=== PATIENT | male | born 1985 | race Caucasian/White ===

== ENCOUNTER 2022-01-09 15:11 | Emergency (ER) | payer OTHER, BC ==
[2022-01-09] MEDS ORDERED: SODIUM CHLORIDE 0.9% 1,000 ML IV STA (15:18)
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
[2022-01-09 15:24] LABS: Glucose,Whole Blood 107 mg/dL (75-99)
[2022-01-09 15:30] VITALS: BP 148/91; PULSE 87; RESP 148; TEMP 98.5
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
--- NOTE | 2022-01-09 15:49 | XR ---
EXAMINATION TYPE: XR foot complete RT DATE OF EXAM: 01/09/2022 COMPARISON: NONE HISTORY: Pain TECHNIQUE: Three views are submitted. FINDINGS: Well-corticated density along the dorsal anterior margin of the talus most likely chronic. There also is a bony density adjacent to lateral malleolus most likely chronic. IMPRESSION: 1. Tiny bony densities adjacent to the talus and lateral malleolus are most likely chronic correlate with point tenderness for confirmation.
[2022-01-09 15:57] LABS: ALT 26 U/L (4-49); AST 26 U/L (17-59); African American GFR (CKD) >90 (>60 ml/min/1.73 sqM); Albumin 4.2 g/dL (3.5-5.0); Alkaline Phosphatase 68 U/L (38-126); Anion Gap 5 mmol/L; Blood Urea Nitrogen 13 mg/dL (9-20); Calcium 9.1 mg/dL (8.4-10.2); Carbon Dioxide 28 mmol/L (22-30); Chloride 107 mmol/L (98-107); Glucose 101 mg/dL (74-99); Non-African American GFR(CKD) >90 (>60 ml/min/1.73 sqM); Potassium 4.3 mmol/L (3.5-5.1); Sodium 140 mmol/L (137-145); Total Bilirubin 0.5 mg/dL (0.2-1.3); Total Protein 6.5 g/dL (6.3-8.2)
[2022-01-09 16:05] LABS: Partial Thromboplastin Time 22.3 sec (22.0-30.0); Prothrombin Time 10.8 sec (9.0-12.0)
[2022-01-09 16:12] LABS: Basophils # (A) 0.1 k/uL (0-0.2); Basophils % (A) 1 %; Eosinophils # (A) 0.3 k/uL (0-0.7); Eosinophils % (A) 6 %; HCT 45.4 % (39.0-53.0); HGB 15.1 gm/dL (13.0-17.5); Lymphocytes # (A) 2.1 k/uL (1.0-4.8); Lymphocytes % (A) 36 %; MCH 32.6 pg (25.0-35.0); MCHC 33.4 g/dL (31.0-37.0); MCV 97.7 fL (80.0-100.0); Mean Platelet Volume 8.3; Monocytes # (A) 0.3 k/uL (0-1.0); Monocytes % (A) 5 %; Neutrophils # (A) 2.9 k/uL (1.3-7.7); Neutrophils % (A) 49 %; Platelet Count 193 k/uL (150-450); RBC 4.65 m/uL (4.30-5.90); RDW 11.8 % (11.5-15.5); WBC 5.8 k/uL (3.8-10.6)
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
[2022-01-09 16:42] LABS: Appearance,Urine Clear (Clear); Bilirubin,Urine Negative (Negative); Blood,Urine Negative (Negative); Color,Urine Light Yellow; Glucose,Urine (UA) Negative (Negative); Ketones,Urine Negative (Negative); Leukocyte Esterase,Urine Negative (Negative); Nitrite,Urine Negative (Negative); PH, Urine 7.5 (5.0-8.0); Protein,Urine Negative (Negative); Specific Gravity,Urine 1.018 (1.001-1.035); Urobilinogen,Urine <2.0 mg/dL (<2.0)
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
== END 2022-01-09 20:15 | disposition home or self-care (01) ==
LOC: EC 15:11
DX: S92.251A Displaced fracture of navicular [scaphoid] of right foot, initial encounter for closed fracture (principal); S92.221A Displaced fracture of lateral cuneiform of right foot, initial encounter for closed fracture; V29.9XXA Motorcycle rider (driver) (passenger) injured in unspecified traffic accident, initial encounter
CPT/HCPCS: 36415; 93005; 86900; 86901; 80053; 84484; 85025; 85610; 85730; 86850; 81003; 72170; 73110; 73130; 73590; 73630; 71045; 72125; 70450; 71260; 74177; 73700; 29515; 99284; 96360; Q9967

== ENCOUNTER 2023-03-24 00:01 | Emergency (ER) | payer BC ==
[2023-03-24 00:23] VITALS: TEMP 98.6
[2023-03-24] MEDS ORDERED: RABIES VACCINE (PCEC) 2.5 UNIT KIT IM ONE (02:00)
--- NOTE | 2023-03-24 02:02 | ED ---
Anxiety HPI - General Chief Complaint: Anxiety Stated Complaint: ANXIETY Time Seen by Provider: 03/24/23 01:18 Source: patient Mode of arrival: ambulatory - History of Present Illness Initial Comments: 38-year-old male presenting with chief complaint of "I think I'm having an anxiety attack". Patient states that he has had increased anxiety over the last 2 days. Patient is worried because 2 months ago he saw a bat flying in his bedroom when he woke up and he is worried he was exposed to rabies. Patient was seen at another facility today and rabies test was sent out, he states that he'll get the results of the month. He states that he has been hyper-fixated on this follow-up for the last 2 days and has had difficulty sleeping. He denies any chest pain, difficulty breathing, palpitations, nausea, vomiting, fever. No history of mental illness and no thoughts of wanting to harm himself or others. - Related Data Home Medications: Previous Rx's Medication Instructions Recorded HYDROcodone/APAP 7.5-325MG [[place] 1 tab PO Q6HR PRN 3 Days #12 tab 01/09/22 7.5-325] Allergies/Adverse Reactions: Allergies Allergy/AdvReac Type Severity Reaction Status Date / Time No Known Allergies Allergy Verified 03/24/23 00:22 Review of Systems ROS Statement: Those systems with pertinent positive or pertinent negative responses have been documented in the HPI. ROS Other: All systems not noted in ROS Statement are negative. Past Medical History Past Medical History: No Reported History History of Any Multi-Drug Resistant Organisms: None Reported Past Surgical History: Adenoidectomy Past Psychological History: No Psychological Hx Reported Smoking Status: Current every day smoker Past Alcohol Use History: Occasional Past Drug Use History: None Reported General Exam Limitations: no limitations General appearance: alert, in no apparent distress Head exam: Present: atraumatic, normocephalic, normal inspection Eye exam: Present: normal appearance, EOMI Neck exam: Present: normal inspection, full ROM Respiratory exam: Present: normal lung sounds bilaterally. Absent: respiratory distress, wheezes, rales, rhonchi, stridor Cardiovascular Exam: Present: regular rate, normal rhythm, normal heart sounds. Absent: systolic murmur, diastolic murmur, rubs, gallop, clicks Neurological exam: Present: alert, oriented X3, CN II-XII intact Psychiatric exam: Present: anxious Skin exam: Present: warm, dry, intact, normal color. Absent: rash Course Vital Signs 03/24/23 00:20 Temperature 98.6 F Pulse Rate 75 Respiratory 18 Rate Blood Pressure 137/94 O2 Sat by Pulse 99 Oximetry Medical Decision Making - Medical Decision Making Was pt. sent in by a medical professional or institution (, PA, METAL SPRAYING MACHINE OPERATOR, urgent care, hospital, or detention...) When possible be specific @ -No Did you speak to anyone other than the patient for history (EMS, parent, family, police, friend...)? What history was obtained from this source @ -No Did you review nursing and triage notes (agree or disagree)? Why? @ -I reviewed and agree with nursing and triage notes Were old charts reviewed (outside hosp., previous admission, EMS record, old EK G, old radiological studies, urgent care reports/EKG's, detention records)? Report findings @ -No old charts were reviewed Differential Diagnosis (chest pain, altered mental status, abdominal pain women, abdominal pain men, vaginal bleeding, weakness, fever, dyspnea, syncope, headache, dizziness, GI bleed, back pain, seizure, CVA, palpatations, mental health, musculoskeletal)? @ -Differential Mental Health Depression, anxiety, bipolar, psychosis, schizophrenia, borderline personality, situational depression, adjustment disorder, behavioral disorder, brain tumor, malingering, substance abuse, encephalopathy, medication reaction, dementia, hypothyroidism, degenerative neurologic disorder, lupus.... This is not meant to be all-inclusive list EKG interpreted by me (3pts min.). @ -As above X-rays interpreted by me (1pt min.). @ -None done CT interpreted by me (1pt min.). @ -None done U/S interpreted by me (1pt. min.). @ -None done What testing was considered but not performed or refused? (CT, X-rays, U/S, labs)? Why? @ -None What meds were considered but not given or refused? Why? @ -None Did you discuss the management of the patient with other professionals (professionals i.e. , PA, METAL SPRAYING MACHINE OPERATOR, lab, RT, psych nurse, criminal justice social worker, spring inspector, teacher, guest relation officer, case finisher)? Give summary @ -No Was smoking cessation discussed for >3mins.? @ -No Was critical care preformed (if so, how long)? @ -No Were there social determinants of health that impacted care today? How? (Homelessness, low income, unemployed, alcoholism, drug addiction, transportation, low edu. Level, literacy, decrease access to med. care, group home, rehab)? @ -No Was there de-escalation of care discussed even if they declined (Discuss DNR or withdrawal of care, Hospice)? DNR status @ -No What co-morbidities impacted this encounter? (DM, HTN, Smoking, COPD, CAD, Cancer, CVA, ARF, Chemo, Hep., AIDS, mental health diagnosis, sleep apnea, morbid obesity)? @ -None Was patient admitted / discharged? Hospital course, mention meds given and route, prescriptions, significant lab abnormalities, going to OR and other pertinent info. @ -38-year-old male presenting with chief complaint of "I think I'm having an anxiety attack". He is concerned he is exposed to rabies 2 months ago when there was a bat flying in his bedroom. He states that he is hyper-fixated on this thought. He denies any thoughts of going to harm himself or others. He does not take any other medications and has no history of mental illness. Patient had a long discussion regarding his concerns. He would like to receive the rabies vaccine today. First dose is given today and he is given a prescription for doses on days 3, 7, and 14. Follow-up with PCP. Report back to ER with any new or worsening symptoms. Discussed return parameters and answered all questions. Patient conveyed verbal understanding and agreed to the plan. I discussed this case in detail with my attending Dr. Yuan Undiagnosed new problem with uncertain prognosis? @ -No Drug Therapy requiring intensive monitoring for toxicity (Heparin, Nitro, Insulin, Cardizem)? @ -No Were any procedures done? @ -No Diagnosis/symptom? @ -Anxiety Acute, or Chronic, or Acute on Chronic? @ -acute Uncomplicated (without systemic symptoms) or Complicated (systemic symptoms)? @ -Uncomplicated Side effects of treatment? @ -No Exacerbation, Progression, or Severe Exacerbation? @ -No Poses a threat to life or bodily function? How? (Chest pain, [place], [place], pneumonia, PE, COPD, DKA, ARF, appy, cholecystitis, CVA, Diverticulitis, Homicidal, Suicidal, threat to staff... and all critical care pts) @ -No Disposition Clinical Impression: Acute anxiety Disposition: HOME SELF-CARE Condition: Good Instructions (If sedation given, give patient instructions): Rabies Vaccine (By injection), Generalized Anxiety Disorder (ED), Rabies (ED) Additional Instructions: Follow-up with PCP. Report back to ER with any new or worsening symptoms. Is patient prescribed a controlled substance at d/c from ED?: No Referrals: Manuelito Sparks MD [Primary Care Provider] - 1-2 days Time of Disposition: 02:02
[2023-03-24] MEDS ORDERED: hydrOXYzine HCL 25 MG TAB PO STA (02:21)
[2023-03-24 02:45] VITALS: BP 127/83; PULSE 81; RESP 16
== END 2023-03-24 02:45 | disposition home or self-care (01) ==
LOC: EC 00:01
DX: F41.9 Anxiety disorder, unspecified (principal); F17.200 Nicotine dependence, unspecified, uncomplicated; Z20.3 Contact with and (suspected) exposure to rabies
CPT/HCPCS: 90471; 90675; 99283

== ENCOUNTER 2023-03-25 10:49 | Emergency (ER) | payer BC ==
[2023-03-25 12:07] LABS: Basophils % (A) 0 %; Eosinophils # (A) 0.1 k/uL (0-0.7); Eosinophils % (A) 2 %; HCT 47.7 % (39.0-53.0); HGB 16.6 gm/dL (13.0-17.5); Lymphocytes # (A) 1.5 k/uL (1.0-4.8); Lymphocytes % (A) 26 %; MCH 33.3 pg (25.0-35.0); MCHC 34.8 g/dL (31.0-37.0); MCV 95.5 fL (80.0-100.0); Mean Platelet Volume 8.3; Monocytes # (A) 0.4 k/uL (0-1.0); Monocytes % (A) 7 %; Neutrophils # (A) 3.6 k/uL (1.3-7.7); Neutrophils % (A) 62 %; Platelet Count 190 k/uL (150-450); RDW 12.2 % (11.5-15.5); WBC 5.8 k/uL (3.8-10.6)
[2023-03-25 12:20] LABS: ALT 39 U/L (4-49); AST 29 U/L (17-59); African American GFR (CKD) >90 (>60 ml/min/1.73 sqM); Albumin 4.9 g/dL (3.5-5.0); Alkaline Phosphatase 78 U/L (38-126); Anion Gap 12 mmol/L; Blood Urea Nitrogen 17 mg/dL (9-20); Calcium 9.9 mg/dL (8.4-10.2); Carbon Dioxide 24 mmol/L (22-30); Chloride 104 mmol/L (98-107); Glucose 97 mg/dL (74-99); Non-African American GFR(CKD) >90 (>60 ml/min/1.73 sqM); Potassium 4.6 mmol/L (3.5-5.1); Sodium 140 mmol/L (137-145); Total Bilirubin 0.8 mg/dL (0.2-1.3); Total Protein 7.8 g/dL (6.3-8.2)
[2023-03-25] MEDS ORDERED: LIDOCAINE/EPINEPHR/TETRACAINE 5 ML BOTTLE TOPICAL ONE (12:44)
[2023-03-25] MEDS ORDERED: LIDOCAINE 1% INJ 10MG/ML (20 ML MDV) SQ ONE (12:45)
--- NOTE | 2023-03-25 12:46 | ED ---
General Adult HPI - General Chief complaint: Neuro Symptoms/Deficit Stated complaint: L Side Numbess arm and face Time Seen by Provider: 03/25/23 11:28 Source: patient, RN notes reviewed Mode of arrival: ambulatory Limitations: no limitations - History of Present Illness Initial comments: Patient is a 30-year-old male presenting to the emergency room with complaints of feeling a fogginess and disconnect in his head ongoing for approximately 3 days now. He was evaluated by both this facility and [facility] 2 days ago for the same symptoms. He reports having a normal CAT scan of the brain at [facility]. He is concerned of possible infection but denies any specific complaints including any chest pain, shortness of breath, abdominal p ain, nausea, vomiting, diarrhea, headache, dizziness, fevers or chills. He denies any significant past medical history. - Related Data Previous Rx's Medication Instructions Recorded HYDROcodone/APAP 7.5-325MG [[place] 1 tab PO Q6HR PRN 3 Days #12 tab 01/09/22 7.5-325] Allergies Allergy/AdvReac Type Severity Reaction Status Date / Time No Known Allergies Allergy Verified 03/25/23 11:05 Review of Systems ROS Statement: Those systems with pertinent positive or pertinent negative responses have been documented in the HPI. ROS Other: All systems not noted in ROS Statement are negative. Past Medical History Past Medical History: No Reported History History of Any Multi-Drug Resistant Organisms: None Reported Past Surgical History: Adenoidectomy Past Psychological History: No Psychological Hx Reported Smoking Status: Former smoker Past Alcohol Use History: Occasional Past Drug Use History: None Reported General Exam Limitations: no limitations General appearance: alert, in no apparent distress Head exam: Present: atraumatic, normocephalic, normal inspection Eye exam: Present: normal appearance, PERRL, EOMI. Absent: scleral icterus, conjunctival injection, periorbital swelling ENT exam: Present: normal exam, mucous membranes moist Neck exam: Present: normal inspection, full ROM Respiratory exam: Absent: respiratory distress, accessory muscle use Cardiovascular Exam: Present: regular rate GI/Abdominal exam: Present: soft. Absent: distended, tenderness, guarding, rebound, rigid Extremities exam: Present: normal inspection, full ROM. Absent: pedal edema, joint swelling Right Gait: observed and normal Back exam: Present: normal inspection Neurological exam: Present: alert, oriented X3, CN II-XII intact Psychiatric exam: Present: normal affect, normal mood Skin exam: Present: warm, dry, intact, normal color. Absent: rash Course Vital Signs 03/25/23 03/25/23 11:02 12:31 Temperature 98.3 F 98.1 F Pulse Rate 65 75 Respiratory 18 16 Rate Blood Pressure 124/83 111/79 O2 Sat by Pulse 99 99 Oximetry Medical Decision Making - Medical Decision Making Was pt. sent in by a medical professional or institution (, PA, RECREATION THERAPY AIDE, urgent care, hospital, or fpc...) When possible be specific @ -No Did you speak to anyone other than the patient for history (EMS, parent, family, police, friend...)? What history was obtained from this source @ -No Did you review nursing and triage notes (agree or disagree)? Why? @ -I reviewed and agree with nursing and triage note Were old charts reviewed (outside hosp., previous admission, EMS record, old EKG, old radiological studies, urgent care reports/EKG's, fpc records)? Report findings @ -Yes, Emergency room workup from 03/24/23 reviewed Differential Diagnosis (chest pain, altered mental status, abdominal pain women, abdominal pain men, vaginal bleeding, weakness, fever, dyspnea, syncope, h eadache, dizziness, GI bleed, back pain, seizure, CVA, palpatations, mental health, musculoskeletal)? @ -Differential Mental Health Depression, anxiety, bipolar, psychosis, schizophrenia, borderline personality, situational depression, adjustment disorder, behavioral disorder, brain tumor, malingering, substance abuse, encephalopathy, medication reaction, dementia, hypothyroidism, degenerative neurologic disorder, lupus.... This is not meant to be all-inclusive list EKG interpreted by me (3pts min.). @ None done X-rays interpreted by me (1pt min.). @ None done CT interpreted by me (1pt min.). @ None done U/S interpreted by me (1pt. min.). @ None done What testing was considered but not performed or refused? (CT, X-rays, U/S, labs)? Why? @ -Computed tomography scan of the head considered but deferred due to recently completed at [facility] and per patient normal. What meds were considered but not given or refused? Why? @ None Did you discuss the management of the patient with other professionals (professionals i.e. Dr., PA, RECREATION THERAPY AIDE, lab, RT, psych nurse, social work supervisor, assessment specialist, teacher, vessel traffic officer, geriatric case manager)? Give summary @ No Was smoking cessation discussed for >3mins.? @ No Was critical care preformed (if so, how long)? @ No Were there social determinants of health that impacted care today? How? (Homelessness, low income, unemployed, alcoholism, drug addiction, transportation, low edu. Level, literacy, decrease access to med. care, assisted, rehab)? @ No Was there de-escalation of care discussed even if they declined (Discuss DNR or withdrawal of care, Hospice)? DNR status @ No What co-morbidities impacted this encounter? (DM, HTN, Smoking, COPD, CAD, Cancer, CVA, ARF, Chemo, Hep., AIDS, mental health diagnosis, sleep apnea, morbid obesity)? @ None Was patient admitted / discharged? Hospital course, mention meds given and route, prescriptions, significant lab abnormalities, going to OR and other pertinent info. @ -30-year-old male presenting to the emergency room with complaints of feeling a fogginess and disconnect in his head ongoing for approximately 3 days now. He was evaluated by both this facility and [facility] days ago for the same symptoms. Will will defer repeat computed tomography scan as he recently had a completed at another facility. Will obtain CBC and CMP. No indication for medication and menstruation at this time. CBC and CMP unremarkable. Recommended patient speak with EPS services for evaluation and recommendation for outpatient services; he is agreeable to this plan. EPS evaluated patient and cleared him from discharge giving him copious amounts of outpatient resources to help with his anxiety which she reports is due to his mother's at the same each he is now. No indication for further workup at this time. Encouraged follow-up with psychiatric services outpatient. Will discharge home in stable condition advising the utilization of coping skills to help with anxiety and follow-up with primary care provider and outpatient community mental health. Undiagnosed new problem with uncertain prognosis? @ No Drug Therapy requiring intensive monitoring for toxicity (Heparin, Nitro, Insulin, Cardizem)? @ No Were any procedures done? @ No Diagnosis/symptom? @ -Anxiety Acute, or Chronic, or Acute on Chronic? @ -Acute on chronic Uncomplicated (without systemic symptoms) or Complicated (systemic symptoms)? @ -Uncomplicated Side effects of treatment? @ No Exacerbation, Progression, or Severe Exacerbation? @ No Poses a threat to life or bodily function? How? (Chest pain, [place], [place], pneumonia, PE, COPD, DKA, ARF, appy, cholecystitis, CVA, Diverticulitis, Homicidal, Suicidal, threat to staff... and all critical care pts) @ No Case discussed with Dr. Clement. - Lab Data Result diagrams: 03/25/23 11:54 03/25/23 11:54 Lab Results 03/25/23 03/25/23 Range/Units 11:54 11:54 WBC 5.8 (3.8-10.6) k/uL RBC 5.00 (4.30-5.90) m/uL Hgb 16.6 (13.0-17.5) gm/dL Hct 47.7 (39.0-53.0) % MCV 95.5 (80.0-100.0) fL MCH 33.3 (25.0-35.0) pg MCHC 34.8 (31.0-37.0) g/dL RDW 12.2 (11.5-15.5) % Plt Count 190 (150-450) k/uL MPV 8.3 Neutrophils % 62 % Lymphocytes % 26 % Monocytes % 7 % Eosinophils % 2 % Basophils % 0 % Neutrophils # 3.6 (1.3-7.7) k/uL Lymphocytes # 1.5 (1.0-4.8) k/uL Monocytes # 0.4 (0-1.0) k/uL Eosinophils # 0.1 (0-0.7) k/uL Basophils # 0.0 (0-0.2) k/uL Sodium 140 (137-145) mmol/L Potassium 4.6 (3.5-5.1) mmol/L Chloride 104 (98-107) mmol/L Carbon Dioxide 24 (22-30) mmol/L Anion Gap 12 mmol/L BUN 17 (9-20) mg/dL Creatinine 0.94 (0.66-1.25) mg/dL Est GFR (CKD-EPI)AfAm >90 (>60 ml/min/1.73 sqM) Est GFR (CKD-EPI)NonAf >90 (>60 ml/min/1.73 sqM) Glucose 97 (74-99) mg/dL Calcium 9.9 (8.4-10.2) mg/dL Total Bilirubin 0.8 (0.2-1.3) mg/dL AST 29 (17-59) U/L ALT 39 (4-49) U/L Alkaline Phosphatase 78 (38-126) U/L Total Protein 7.8 (6.3-8.2) g/dL Albumin 4.9 (3.5-5.0) g/dL Disposition Clinical Impression: Acute anxiety Disposition: HOME SELF-CARE Condition: Stable Is patient prescribed a controlled substance at d/c from ED?: No Referrals: Manuelito Sparks MD [REFERRING] - 1-2 days
--- NOTE | 2023-03-25 13:13 | ED ---
General Adult HPI - General Chief complaint: Neuro Symptoms/Deficit Stated complaint: L Side Numbess arm and face Time Seen by Provider: 03/25/23 11:28 Source: patient Mode of arrival: ambulatory Limitations: no limitations - Related Data Previous Rx's Medication Instructions Recorded HYDROcodone/APAP 7.5-325MG [[place] 1 tab PO Q6HR PRN 3 Days #12 tab 01/09/22 7.5-325] Allergies Allergy/AdvReac Type Severity Reaction Status Date / Time No Known Allergies Allergy Verified 03/25/23 11:05 Review of Systems ROS Statement: Those systems with pertinent positive or pertinent negative responses have been documented in the HPI. ROS Other: All systems not noted in ROS Statement are negative. Past Medical History Past Medical History: No Reported History History of Any Multi-Drug Resistant Organisms: None Reported Past Surgical History: Adenoidectomy Past Psychological History: No Psychological Hx Reported Smoking Status: Former smoker Past Alcohol Use History: Occasional Past Drug Use History: None Reported General Exam Limitations: no limitations Course Vital Signs 03/25/23 11:02 Temperature 98.3 F Pulse Rate 65 Respiratory 18 Rate Blood Pressure 124/83 O2 Sat by Pulse 99 Oximetry Medical Decision Making - Lab Data Result diagrams: 03/25/23 11:54 03/25/23 11:54 Lab Results 03/25/23 03/25/23 Range/Units 11:54 11:54 WBC 5.8 (3.8-10.6) k/uL RBC 5.00 (4.30-5.90) m/uL Hgb 16.6 (13.0-17.5) gm/dL Hct 47.7 (39.0-53.0) % MCV 95.5 (80.0-100.0) fL MCH 33.3 (25.0-35.0) pg MCHC 34.8 (31.0-37.0) g/dL RDW 12.2 (11.5-15.5) % Plt Count 190 (150-450) k/uL MPV 8.3 Neutrophils % 62 % Lymphocytes % 26 % Monocytes % 7 % Eosinophils % 2 % Basophils % 0 % Neutrophils # 3.6 (1.3-7.7) k/uL Lymphocytes # 1.5 (1.0-4.8) k/uL Monocytes # 0.4 (0-1.0) k/uL Eosinophils # 0.1 (0-0.7) k/uL Basophils # 0.0 (0-0.2) k/uL Sodium 140 (137-145) mmol/L Potassium 4.6 (3.5-5.1) mmol/L Chloride 104 (98-107) mmol/L Carbon Dioxide 24 (22-30) mmol/L Anion Gap 12 mmol/L BUN 17 (9-20) mg/dL Creatinine 0.94 (0.66-1.25) mg/dL Est GFR (CKD-EPI)AfAm >90 (>60 ml/min/1.73 sqM) Est GFR (CKD-EPI)NonAf >90 (>60 ml/min/1.73 sqM) Glucose 97 (74-99) mg/dL Calcium 9.9 (8.4-10.2) mg/dL Total Bilirubin 0.8 (0.2-1.3) mg/dL AST 29 (17-59) U/L ALT 39 (4-49) U/L Alkaline Phosphatase 78 (38-126) U/L Total Protein 7.8 (6.3-8.2) g/dL Albumin 4.9 (3.5-5.0) g/dL Disposition Referrals: Manuelito Sparks MD [Primary Care Provider] - 1-2 days
[2023-03-25 14:31] VITALS: BP 123/68; PULSE 72; RESP 18; TEMP 98.2
== END 2023-03-25 14:31 | disposition home or self-care (01) ==
LOC: EC 10:49
DX: F41.9 Anxiety disorder, unspecified (principal); Z87.891 Personal history of nicotine dependence
CPT/HCPCS: 36415; 80053; 82075; 85025; 99284

== ENCOUNTER → 2023-08-12 | Outpatient (CLI) | payer BC ==
[2023-08-12 15:43] LABS: Luteinizing Hormone 8.3 mIU/mL; Prolactin 15.6 ng/mL (2.100-17.000)
== END | disposition home or self-care (01) ==
LOC: LABWHC1 07:14
PROVIDERS: ATTEND Urology
DX: E29.1 Testicular hypofunction (principal)
CPT/HCPCS: 36415; 83002; 84146; 84402; 84403

== ENCOUNTER 2024-01-22 17:29 | Emergency (ER) | payer BC ==
--- NOTE | 2024-01-22 18:01 | ED ---
Headache HPI - General Source: RN notes reviewed Mode of arrival: ambulatory Limitations: no limitations <Neelam Dickinson - Last Filed: 01/22/24 17:58> - General Source: patient, RN notes reviewed Mode of arrival: ambulatory Limitations: no limitations <Jenna Campos - Last Filed: 01/23/24 01:03> - General Chief Complaint: Headache Stated Complaint: head pressure, brain fog, vision issues Time Seen by Provider: 01/22/24 17:58 - History of Present Illness Initial Comments: Quick [id number] male presenting with headache x 1 week. States pain is worsening over the past day and he is having pressure behind the sinuses. He also complains of "brain fog" and nonspecific vision changes. He did see Dr. Peters about this and states he ordered an MRI, but patient is concerned as symptoms are worsening. Denies fever, chills, vomiting. (Neelam Dickinson) 38-year-old male presented to ER with chief complaint of a headache. He states has been going on for the past couple of months of this morning has increased in intensity. He describes it as a pressure sensation that starts in his sinuses and travels across his face into his head. He does state his ears occasionally pop due to this sensation. He also endorses associated dizziness as if the room is spinning. He denies any nausea or vomiting. He is also complaining of nonspecific vision changes occasionally. Denies any fevers, chills, cough, congestion, chest pain, shortness of breath, abdominal pain or peripheral edema. (Jenna Campos) - Related Data Home Medications Medication Instructions Recorded Confirmed PARoxetine [Paxil] 10 mg PO DAILY 03/31/23 04/07/23 Allergies Allergy/AdvReac Type Severity Reaction Status Date / Time No Known Allergies Allergy Verified 01/22/24 17:48 Review of Systems ROS Other: All systems not noted in ROS Statement are negative. <Neelam Dickinson - Last Filed: 01/22/24 17:58> ROS Other: All systems not noted in ROS Statement are negative. <Jenna Campos - Last Filed: 01/23/24 01:03> ROS Statement: Those systems with pertinent positive or pertinent negative responses have been documented in the HPI. Past Medical History Past Medical History: No Reported History History of Any Multi-Drug Resistant Organisms: None Reported Past Surgical History: Adenoidectomy Past Psychological History: No Psychological Hx Reported Smoking Status: Former smoker Past Alcohol Use History: None Reported Past Drug Use History: None Reported <Neelam Dickinson - Last Filed: 01/22/24 17:58> General Exam Limitations: no limitations <Neelam Dickinson - Last Filed: 01/22/24 17:58> General appearance: alert, in no apparent distress Head exam: Present: atraumatic, normocephalic, normal inspection Eye exam: Present: normal appearance, PERRL, EOMI. Absent: scleral icterus, conjunctival injection, periorbital swelling Pupils: Present: normal accommodation (4mm pupils bilaterally) ENT exam: Present: normal exam, normal oropharynx, mucous membranes moist Neck exam: Present: normal inspection. Absent: tenderness, meningismus, lymphadenopathy Respiratory exam: Present: normal lung sounds bilaterally. Absent: respiratory distress, wheezes, rales, rhonchi, stridor Cardiovascular Exam: Present: regular rate, normal rhythm, normal heart sounds. Absent: systolic murmur, diastolic murmur, rubs, gallop, clicks Extremities exam: Present: normal inspection, full ROM, normal capillary refill. Absent: tenderness, pedal edema, joint swelling, calf tenderness Neurological exam: Present: alert, oriented X3, CN II-XII intact Skin exam: Present: warm, dry, intact, normal color. Absent: rash <Jenna Campos - Last Filed: 01/23/24 01:03> - General Exam Comments Initial Comments: Visual Physical Exam Vital signs reviewed General: Well-appearing, nontoxic, no acute distress. Head: Normocephalic, atraumatic Eyes: PERRLA, EOMI ENT: Airway patent Chest: Nonlabored breathing Skin: No visual rash, normal skin tone Neuro: Alert and oriented 3 Musculoskeletal: No gross abnormalities (Neelam Dickinson) Course Vital Signs 01/22/24 01/22/24 01/22/24 17:47 20:54 22:14 Temperature 98.3 F 98.0 F Pulse Rate 80 60 56 L Respiratory 20 18 18 Rate Blood Pressure 113/74 111/75 116/68 O2 Sat by Pulse 99 100 98 Oximetry Medical Decision Making <Neelam Dickinson - Last Filed: 01/22/24 17:58> - Lab Data Result diagrams: 01/22/24 20:28 01/22/24 20:28 - Radiology Data Radiology results: report reviewed, image reviewed <Jenna Campos - Last Filed: 01/23/24 01:03> - Medical Decision Making I completed the quick note portion of this chart signed Neelam Dickinson PA-C (Neelam Dickinson) Was pt. sent in by a medical professional or institution (, PA, [facility], urgent care, hospital, or skilled nursing...) When possible be specific @ -No Did you speak to anyone other than the patient for history (EMS, parent, family, police, friend...)? What history was obtained from this source @ -No Did you review nursing and triage notes (agree or disagree)? Why? @ -I reviewed and agree with nursing and triage notes Were old charts reviewed (outside hosp., previous admission, EMS record, old EKG, old radiological studies, urgent care reports/EKG's, skilled nursing records)? Report findings @ -No old charts were reviewed Differential Diagnosis (chest pain, altered mental status, abdominal pain women, abdominal pain men, vaginal bleeding, weakness, fever, dyspnea, syncope, headache, dizziness, GI bleed, back pain, seizure, CVA, palpatations, mental health, musculoskeletal)? @ -Differential Headache:Migraine, tension, cluster, carbon monoxide, central venous thrombosis, pension karma temporal arteritis, acute closure glaucoma, intercranial hemorrhage, mastoiditis, sinusitis, head injury, this is not meant to be an all-inclusive list. EKG interpreted by me (3pts min.). @ -None X-rays interpreted by me (1pt min.). @ -None done CT interpreted by me (1pt min.). @ -CT brain negative for acute intracranial process. There is mild chronic inflammatory changes of the maxillary and ethmoid sinuses. U/S interpreted by me (1pt. min.). @ -None done What testing was considered but not performed or refused? (CT, X-rays, U/S, labs)? Why? @ -None What meds were considered but not given or refused? Why? @ -None Did you discuss the management of the patient with other professionals (professionals i.e. , PA, [employer], lab, RT, psych nurse, social security benefits interviewer, ict analyst, teacher, chief contract officer, case sealer)? Give summary @ -No Was smoking cessation discussed for >3mins.? @ -No Was critical care preformed (if so, how long)? @ -No Were there social determinants of health that impacted care today? How? (Homelessness, low income, unemployed, alcoholism, drug addiction, transportation, low edu. Level, literacy, decrease access to med. care, halfway, rehab)? @ -No Was there de-escalation of care discussed even if they declined (Discuss DNR or withdrawal of care, Hospice)? DNR status @ -No What co-morbidities impacted this encounter? (DM, HTN, Smoking, COPD, CAD, Cancer, CVA, ARF, Chemo, Hep., AIDS, mental health diagnosis, sleep apnea, morbid obesity)? @ -None Was patient admitted / discharged? Hospital course, mention meds given and route, prescriptions, significant lab abnormalities, going to OR and other pertinent info. @ -Discharged. 38-year-old male presented to ER with a chief complaint of a headache. History and physical exam completed. Vitals stable. Exam unremarkable. No acute neurological findings on exam. Laboratory studies obtained unremarkable. Flu, RSV, COVID-negative. CT brain performed to rule out intracranial abnormality. CT negative for acute intracranial process. There is mild chronic inflammatory changes of the maxillary and ethmoid sinuses. Patient received IV fluids, Toradol, Benadryl for symptom control in the ER. Upon reevaluation, patient sleeping on stretcher no signs of acute distress. Patient reporting improved pain. Headache believed to be likely related to chronic sinusitis. Results discussed with patient, all questions answered. Patient stable for discharge at this time. Advise close follow-up with PCP. Strict return parameters discussed. Patient discharged in stable condition. Patient verbally expressed understanding and agreement with care plan. Case discussed with ED attending, Dr. Eastman. Undiagnosed new problem with uncertain prognosis? @ -No Drug Therapy requiring intensive monitoring for toxicity (Heparin, Nitro, Insulin, Cardizem)? @ -No Were any procedures done? @ -No Diagnosis/symptom? @ -Headache/chronic sinusitis Acute, or Chronic, or Acute on Chronic? @ -Acute Uncomplicated (without systemic symptoms) or Complicated (systemic symptoms)? @ -Uncomplicated Side effects of treatment? @ -No Exacerbation, Progression, or Severe Exacerbation? @ -No Poses a threat to life or bodily function? How? (Chest pain, [place], [place], pneumonia, PE, COPD, DKA, ARF, appy, cholecystitis, CVA, Diverticulitis, Homicidal, Suicidal, threat to staff... and all critical care pts) @ -No (Jenna Campos) - Lab Data Lab Results 01/22/24 01/22/24 01/22/24 Range/Units 20:28 20:28 20:28 WBC 6.8 (3.8-10.6) k/uL RBC 5.05 (4.30-5.90) m/uL Hgb 16.4 (13.0-17.5) gm/dL Hct 47.9 (39.0-53.0) % MCV 94.9 D (80.0-100.0) fL MCH 32.6 (25.0-35.0) pg MCHC 34.3 (31.0-37.0) g/dL RDW 12.0 (11.5-15.5) % Plt Count 195 (150-450) k/uL MPV 8.3 Neutrophils % 59 % Lymphocytes % 31 % Monocytes % 4 % Eosinophils % 3 % Basophils % 1 % Neutrophils # 4.0 (1.3-7.7) k/uL Lymphocytes # 2.1 (1.0-4.8) k/uL Monocytes # 0.3 (0-1.0) k/uL Eosinophils # 0.2 (0-0.7) k/uL Basophils # 0.1 (0-0.2) k/uL Sodium 140 (137-145) mmol/L Potassium 4.6 (3.5-5.1) mmol/L Chloride 106 (98-107) mmol/L Carbon Dioxide 27 (22-30) mmol/L Anion Gap 7 mmol/L BUN 18 (9-20) mg/dL Creatinine 0.96 (0.66-1.25) mg/dL Est GFR (CKD-EPI)AfAm >90 (>60 ml/min/1.73 sqM) Est GFR (CKD-EPI)NonAf >90 (>60 ml/min/1.73 sqM) Glucose 96 (74-99) mg/dL Calcium 9.8 (8.4-10.2) mg/dL Total Bilirubin 0.6 (0.2-1.3) mg/dL AST 28 (17-59) U/L ALT 44 (4-49) U/L Alkaline Phosphatase 83 (38-126) U/L Total Protein 7.2 (6.3-8.2) g/dL Albumin 4.9 (3.5-5.0) g/dL Influenza Type A (PCR) Not Detected (Not Detectd) Influenza Type B (PCR) Not Detected (Not Detectd) RSV (PCR) Not Detected (Not Detectd) SARS-CoV-2 (PCR) Not Detected (Not Detectd) Disposition <Neelam Dickinson - Last Filed: 01/22/24 17:58> Is patient prescribed a controlled substance at d/c from ED?: No Time of Disposition: 22:07 <Jenna Campos - Last Filed: 01/23/24 01:03> Clinical Impression: Headache, Chronic sinusitis Disposition: HOME SELF-CARE Condition: Stable Instructions (If sedation given, give patient instructions): Acute Headache (ED) Additional Instructions: Please follow-up with PCP. Return to the ER for any new or worsening concerns. Referrals: Ulices Peters DO [Primary Care Provider] - 1-2 days
--- NOTE | 2024-01-22 20:29 | CT ---
EXAMINATION TYPE: CT brain wo con DATE OF EXAM: 01/22/2024 COMPARISON: 01/19/2022 HISTORY: BRODY CT DLP: 1154.8 mGycm. Automated Exposure Control for Dose Reduction was Utilized. TECHNIQUE: CT scan of the head is performed without contrast. FINDINGS: The ventricles, basal cisterns and sulci over the convexities are within normal limits and there is n o mass effect or shift of midline structures. No abnormal density is seen throughout the brain parenchyma and there is no acute intra or extra-axia l hemorrhage. The posterior fossa including the brainstem, fourth ventricle and cerebellar pontine angles appear no rmal. Intraorbital contents appear normal and symmetric. There are mild chronic inflammatory changes in the ethmoid and maxillary sinuses. The calvarium is intact. IMPRESSION: No significant abnormality seen. There is no acute bleed or mass effect. Mild chronic inflammatory ch anges in the maxillary and ethmoid sinuses.
[2024-01-22] MEDS: SODIUM CHLORIDE 0.9% 1,000 ML IV STA (20:30)
[2024-01-22] MEDS: KETOROLAC 15 MG/ML 1 ML VIAL IVP STA (20:34)
[2024-01-22] MEDS: diphenhydrAMINE 50 MG/ML 1 ML VIAL IVP STA (20:36)
[2024-01-22] MEDS: ACETAMINOPHEN TAB 325 MG TAB PO STA (20:37)
[2024-01-22 20:48] LABS: Basophils # (A) 0.1 k/uL (0-0.2); Basophils % (A) 1 %; Eosinophils # (A) 0.2 k/uL (0-0.7); Eosinophils % (A) 3 %; HCT 47.9 % (39.0-53.0); HGB 16.4 gm/dL (13.0-17.5); Lymphocytes # (A) 2.1 k/uL (1.0-4.8); Lymphocytes % (A) 31 %; MCH 32.6 pg (25.0-35.0); MCHC 34.3 g/dL (31.0-37.0); Mean Platelet Volume 8.3; Monocytes # (A) 0.3 k/uL (0-1.0); Monocytes % (A) 4 %; Neutrophils % (A) 59 %; Platelet Count 195 k/uL (150-450); RBC 5.05 m/uL (4.30-5.90); WBC 6.8 k/uL (3.8-10.6)
[2024-01-22 20:51] LABS: ALT 44 U/L (4-49); AST 28 U/L (17-59); African American GFR (CKD) >90 (>60 ml/min/1.73 sqM); Albumin 4.9 g/dL (3.5-5.0); Alkaline Phosphatase 83 U/L (38-126); Anion Gap 7 mmol/L; Blood Urea Nitrogen 18 mg/dL (9-20); Calcium 9.8 mg/dL (8.4-10.2); Carbon Dioxide 27 mmol/L (22-30); Chloride 106 mmol/L (98-107); Glucose 96 mg/dL (74-99); Non-African American GFR(CKD) >90 (>60 ml/min/1.73 sqM); Potassium 4.6 mmol/L (3.5-5.1); Sodium 140 mmol/L (137-145); Total Bilirubin 0.6 mg/dL (0.2-1.3); Total Protein 7.2 g/dL (6.3-8.2)
[2024-01-22 20:53] LABS: MCV 94.9 fL (80.0-100.0)
[2024-01-22 20:57] VITALS: RESP 18
[2024-01-22] MEDS: ONDANSETRON 4 MG/2 ML VIAL IVP STA (22:11)
[2024-01-22 22:19] VITALS: BP 116/68; PULSE 56; TEMP 98
[2024-01-23 02:11] LABS: Erythrocyte Sedimentation Rate 2 mm/Hr (0-15)
== END 2024-01-22 22:19 | disposition home or self-care (01) ==
LOC: EC 17:29
DX: J32.8 Other chronic sinusitis (principal); Z11.52 Encounter for screening for COVID-19; Z87.891 Personal history of nicotine dependence
CPT/HCPCS: 99284; 96374; 96375; 96361; 36415; 80053; 85652; 85025; 87636; 70450; J1200; J1885

== ENCOUNTER → 2024-02-12 | Outpatient (CLI) | payer BC ==
--- NOTE | 2024-02-14 12:32 | US ---
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 GLAND SIZE: Right Lobe: 4.2 x 1.6 x 1.3 cm Overall Parenchyma: homogeneous Left Lobe: 4.6 x 1.4 x 1.2 cm Overall Parenchyma: homogeneous Isthmus Thickness: 0.2 cm NODULES RIGHT: # of nodules measured on right: 0 LEFT: # of nodules measured on left: 0 ISTHMUS: # of nodules measured in the isthmus: 0 Bilateral neck scanned, no evidence of lymphadenopathy. IMPRESSION: Normal examination. A 2017 ACR TI-RADS LEVEL: *Highest TI-RADS level nodule reported
== END | disposition home or self-care (01) ==
LOC: RADUSWWP 12:43
PROVIDERS: ATTEND Internal Medicine
DX: E04.1 Nontoxic single thyroid nodule (principal); R22.0 Localized swelling, mass and lump, head
CPT/HCPCS: 76536

== ENCOUNTER → 2024-03-28 | Outpatient (CLI) | payer BC ==
--- NOTE | 2024-03-28 10:19 | CT ---
EXAMINATION TYPE: CT sinus wo con DATE OF EXAM: 03/28/2024 COMPARISON: None HISTORY: 39-year-old male J32.0, chronic sinusitis, r/o mass CT DLP: 563 mGycm Automated exposure control for dose reduction was used. TECHNIQUE: Noncontrast axial views of the paranasal sinuses were obtained. Coronal and sagittal recon structions performed. FINDINGS: PARANASAL SINUSES: There is mild to moderate lobulated mucosal thickening throughout the maxillary sinuses with mucosal retention cysts measuring up to 2.0 cm on either side. There is moderate mucosal thickening throughout the air cells. Mild mucosal thickening left sphenoid sinus. Frontal sinuses well pneumatized. There is no air-fluid level. Reactive isaiah- osteogenesis is not seen. There is no destruction of the osseous navarrete of the paranasal sinuses. THE NASAL CAVITY: The osteomeatal complexes are patent but with narrowing of the left due to mucosal thickening. There is leftward nasal septal deviation. The imaged brain and orbits are normal in appearance. Mastoid air cells and middle ear cavities are well pneumatized. Reformatted images confirm above findings. IMPRESSION: 1. [id number] chronic maxillary sinus disease along with mucosal retention cysts measuring up t o 2.0 cm. 2. Additional moderate mucosal thickening throughout the ethmoid air cells and mild within the left s phenoid sinus. 3. Leftward nasal septal deviation
== END | disposition home or self-care (01) ==
LOC: RADCTMAIN 09:28
PROVIDERS: ATTEND Otolaryngology
DX: J32.0 Chronic maxillary sinusitis
CPT/HCPCS: 70486

== ENCOUNTER → 2024-04-07 | Outpatient (CLI) | payer BC ==
[2024-04-07 22:55] LABS: Alternaria alternata IgE <0.10 kU/L; Aspergillus fumagatus IgE <0.10 kU/L; Birch IgE <0.10 kU/L; Cat Epith & Dander IgE <0.10 kU/L; Cladosporian herbarum IgE <0.10 kU/L; Cockroach IgE <0.10 kU/L; Dermato. farinae IgE <0.10 kU/L; Dog Dander IgE <0.10 kU/L; Maple (Box Elder) IgE <0.10 kU/L; Oak IgE <0.10 kU/L; Ragweed,Common IgE <0.10 kU/L
[2024-04-08 15:18] LABS: Aureo. pullulans IgE <0.10 kU/L (<0.10); Aureo. pullulans IgE Class CLASS 0; Candida albicans IgE Class CLASS 0; Com. Pigweed IgE <0.10 kU/L (<0.10); Com. Pigweed IgE Class CLASS 0; Cottonwood IgE <0.10 kU/L (<0.10); English Plantain IgE Class CLASS 0; Epicoccum purpurascens Class CLASS 0; Epicoccum purpurascens IgE <0.10 kU/L (<0.10); Johnson Grass IgE Class CLASS 0; Lamb's Quarter IgE <0.10 kU/L (<0.10); Lamb's Quarter IgE Class CLASS 0; Mucor racemosus IgE <0.10 kU/L (<0.10); Mucor racemosus IgE Class CLASS 0; Rhizopus nigricans IgE <0.10 kU/L (<0.10); Rhizopus nigricans IgE Class CLASS 0; S.rostrata/Helminth Class CLASS 0; S.rostrata/Helminth IgE <0.10 kU/L (<0.10); Sycamore(Mpl.Lf) IgE <0.10 kU/L (<0.10); Sycamore(Mpl.Lf) IgE Class CLASS 0; Timothy Grass IgE <0.10 kU/L (<0.10); Timothy Grass IgE Class CLASS 0; Walnut Tree IgE <0.10 kU/L (<0.10); Walnut Tree IgE Class CLASS 0; White Ash IgE Class CLASS 0
== END | disposition home or self-care (01) ==
LOC: LABWHC1 09:06
PROVIDERS: ATTEND Otolaryngology
DX: J30.89 Other allergic rhinitis (principal)
CPT/HCPCS: 36415; 82785; 86003

== ENCOUNTER 2024-07-13 07:01 | Day surgery (SDC) | payer BC ==
[2024-07-13] MEDS: IV FLUID CONTINUATION 1,000 ML IV ONE (07:28)
[2024-07-13] MEDS: OXYMETAZOLINE 0.05% NASL SPRAY 1 SPRAY BOTTLE EA NOSTRIL PRN (07:38)
[2024-07-13] MEDS: DEXAMETHASONE SOD PHOSPHATE 4 MG/ML 1 ML VIAL IV ONE (07:39)
[2024-07-13] MEDS: ONDANSETRON 4 MG/2 ML VIAL IVP ONE (07:39)
[2024-07-13] MEDS: LACTATED RINGERS 1,000 ML IV SCH (07:39)
[2024-07-13] MEDS: FAMOTIDINE 20 MG/2 ML VIAL IV PRN (07:40)
[2024-07-13] MEDS ORDERED: LIDOCAINE 1% INJ 10MG/ML (20 ML MDV) ONE (08:20)
[2024-07-13] MEDS ORDERED: MIDAZOLAM 2 MG/2 ML VIAL ONE (08:20)
[2024-07-13] MEDS ORDERED: PROPOFOL 10 MG/ML 20 ML VIAL IV ONE (08:20)
[2024-07-13] MEDS ORDERED: LIDOCAINE 4% LTA KIT (4 ML) TOPICAL ONE (08:20)
[2024-07-13] MEDS ORDERED: fentaNYL (PF) 50 MCG/ML 2 ML AMP ONE (08:20)
[2024-07-13] MEDS ORDERED: SUCCINYLCHOLINE CHLORIDE 200 MG/10 ML VIAL IV ONE (08:20)
[2024-07-13] MEDS: LIDOCAINE 1%-EPI 1:100,000 20 ML VIAL SUBMUCOSAL ONE ×2 (08:36)
[2024-07-13] MEDS: BACITRACIN ZINC 500 UNIT/GM OINT 28.4 GM TUBE TOPICAL ONE ×2 (08:41→09:26)
--- NOTE | 2024-07-13 09:36 | P.OP ---
Date of Procedure: 07/13/24 Preoperative Diagnosis: deviated nasal septum Inferior turbinate hypertrophy Chronic sinusitis Postoperative Diagnosis: same Procedure(s) Performed: septoplasty Outfracture and submucous resection of the inferior turbinates Bilateral endoscopic sinus surgery including bilateral maxillary antrostomy with removal of tissue from the maxillary sinuses, bilateral anterior and posterior ethmoidectomy with left sphenoidotomy Anesthesia: ANUPAM Surgeon: Koko Swann Estimated Blood Loss (ml): 10 Pathology: other (nasal septal bone and cartilage and sinus contents) Condition: stable Disposition: PACU Indications for Procedure: is a 39-year-old white male sent difficulty with chronic nasal airway obstruction and congestion as well as recurrent/chronic sinusitis with CT evidence of chronic sinusitis Operative Findings: nasal septum deviated to the left anteriorly to the right posteriorly with inferior turbinate hypertrophy and evidence of chronic sinusitis with obstruction of the ostium to complexes bilaterally small cysts in the maxillary sinuses bilaterally. Mucosal thickening throughout the anterior and posterior ethmoid sinuses and mucosal thickening in the left sphenoid sinus also Description of Procedure: The patient was brought into the operative suite and placed in a supine position. The patient underwent induction of general anesthesia with oral endotracheal intubation without difficulty. The patient was prepped and draped in the usual aseptic fashion with the orbits in the operating field for monitoring to the case and the computed tomography scan was on the computer screen for review throughout the case. 1% lidocaine with 1 :100,000 epinephrine was infused submucosally into both sides of the nasal septum as well as the lateral nasal wall and anterior tips of the middle turbinates. While this was taking vasoconstrictive effect the inferior turbinates were infractured with [place] elevator and partial submucous resection of the inferior turbinates was performed with a portion of the submucosal soft tissue and the inferior turbinate bone removed with Coblation device. The inferior turbinates were then outfractured with the [place] elevator. A left hemitransfixion incision was then made with the mucoperichondrial and mucoperiosteal flap on the left elevated. The bony cartilaginous junction was disarticulated and the mucoperiosteal flap on the right was elevated. Bony nasal septal deformities were removed with Jason forceps and an inferior cartilaginous strip was removed leaving a full 1.5 cm caudal strut. Checking intranasally this corrected the nasoseptal deformities and the hemitransfixion incision was closed with a running 4-0 chromic suture. Full 0 endoscopic examination is performed bilaterally. Beginning on the left, the middle turbinate was medialized. The maxillary ostium was located with a ballpoint probe and an infundibulotomy was performed followed by uncinectomy. The maxillary antrostomy was enlarged at the expense of the anterior and posterior fontanelle taking care anteriorly not to injure the lacrimal bone. The maxillary sinus was evaluated with 30 and 70 endoscope .[Abnormal appearing tissue was removed from the maxillary sinus]. Anterior and posterior ethmoidectomy were then performed from anterior to posterior to the level of the skull base. The roof of the anterior ethmoid air cells were then cleaned from posterior to anterior using up-biting Blakesley forceps. sphenoidotomy was also performed on the left with 0 endoscope and straight suction and explored. Attention was then turned to the right where the procedures were followed as they had been on the leftincluding medialization middle turbinate, infundibulotomy, uncinectomy, maxillary antrostomy with removal of tissue from the maxillary sinus, anterior posterior ethmoidectomy.. [Nasopore nasal dressing was placed in the middle meatus bilaterally under direct visualization]. Bilateral Mccray airway splints coated with bacitracin ointment were placed and sutured transseptally with a 4-0 nylon suture. The patient was suctioned in oral gastric fashion and was allowed to emerge from general anesthesia having tolerated procedure well and was extubated in the operating suite and transferred to the postoperative recovery area in satisfactory condition.
[2024-07-13 09:56] VITALS: TEMP 97
[2024-07-13] MEDS: HYDROmorphone 0.5 MG/0.5 ML SYRINGE IVP PRN (10:05)
[2024-07-13 11:44] VITALS: BP 126/86; PULSE 62; RESP 20
== END 2024-07-13 12:19 | disposition home or self-care (01) ==
LOC: OR 07:01
PROVIDERS: ATTEND Otolaryngology
DX: J34.2 Deviated nasal septum (principal); J34.3 Hypertrophy of nasal turbinates; J32.2 Chronic ethmoidal sinusitis; J32.0 Chronic maxillary sinusitis; E66.3 Overweight; F41.9 Anxiety disorder, unspecified; Z68.25 Body mass index [BMI] 25.0-25.9, adult; Z79.899 Other long term (current) drug therapy; Z87.891 Personal history of nicotine dependence; Z90.49 Acquired absence of other specified parts of digestive tract
CPT/HCPCS: 30520; 30140; 31267; 31257; J2250; J0330; J1100; J0690; J2405; J2003; J3010; J3490; J2704; J1171